=== PATIENT | male | born 1980 | race Caucasian/White ===

== ENCOUNTER 2018-08-26 10:52 | Emergency (ER) | payer OTHER ==
[~2018-08-26] VITALS: Ht 175.3 cm; Wt 100.0 kg
[2018-08-26 11:02] VITALS: BP 145/92; PULSE 99; TEMP 99.7
[2018-08-26] MEDS ORDERED: LEXAPRO20 MG PO (14:01)
[2018-08-26] MEDS ORDERED: HYZAAR 50-12.1 UDTAB PO (14:02)
[2018-08-26] MEDS ORDERED: PRILOSEC 20MG20 MG PO (14:02)
== END 2018-08-26 12:45 | disposition home or self-care (01) ==
LOC: COL.ER 10:52
DX: S90.32XA Contusion of left foot, initial encounter (principal); S70.02XA Contusion of left hip, initial encounter; I10 Essential (primary) hypertension; K21.9 Gastro-esophageal reflux disease without esophagitis; W13.8XXA Fall from, out of or through other building or structure, initial encounter

== ENCOUNTER → 2019-02-16 | Outpatient (CLI) | payer OTHER ==
[~2019-02-16] MED LIST: HYZAAR 50-12.1 UDTAB PO; LEXAPRO20 MG PO; PRILOSEC 20MG20 MG PO
== END ==
LOC: COL.VAS 12:35
DX: I42.2 Other hypertrophic cardiomyopathy (principal); I34.0 Nonrheumatic mitral (valve) insufficiency

== ENCOUNTER → 2019-06-01 | Outpatient (CLI) | payer OTHER | LOC: COL.RAD 12:13 | DX: I42.9 Cardiomyopathy, unspecified (principal) | CPT/HCPCS: A9560 ==